=== PATIENT | female | born 1985 | race Caucasian/White ===

== ENCOUNTER → 2023-10-13 09:23 | Outpatient (REF) | payer SELFPAY | LOC: WDC 09:23 | DX: N63.10 Unspecified lump in the right breast, unspecified quadrant (principal); N60.01 Solitary cyst of right breast | CPT/HCPCS: 76642; 77062; 77066 ==

== ENCOUNTER → 2023-10-16 08:54 | Outpatient (REF) | payer SELFPAY ==
--- NOTE | 2023-10-16 13:53 | OID.BR.INTR ---
[facility] Breast Navigator - Initial
- -
Date of Contact: 10/16/23
Met with patient. Patient given written information on navigator services available at [facility]. Will follow up as needed per protocol.
== END ==
LOC: WDC 08:54
DX: N63.14 Unspecified lump in the right breast, lower inner quadrant (principal)
CPT/HCPCS: 88305; 19083; 77065; A4648